=== PATIENT | female | born 2000 | race African-American/Black ===

== ENCOUNTER 2018-01-26 17:12 | Emergency (ER) | payer OTHER ==
[~2018-01-26] VITALS: Ht 162.6 cm; Wt 53.3 kg
[2018-01-26 17:57] LABS: HCG UR SG 1.026 (1.003-1.030); MICROSCOPIC NOT IND
[2018-01-26 18:06] LABS: CULTURE INDICATED? NO
[2018-01-26 18:06] LABS: ALANINE AMINOTRANSFERASE 10 U/L (12-78); ALBUMIN 4.4 g/dL (3.4-5.0); ANION GAP 8 mmol/L (5-15); CALCIUM 9.8 mg/dL (8.5-10.1); CHLORIDE 107 mmol/L (98-107); CREATININE 0.64 mg/dL (0.55-1.02)
[2018-01-26 18:07] LABS: ALKALINE PHOSPHATASE 71 U/L (45-117); BILIRUBIN,TOTAL 0.5 mg/dL (0.2-1.0); TOTAL PROTEIN 8.7 g/dL (6.4-8.2)
[2018-01-26 18:16] LABS: MEAN CORPUSCULAR HEMOGLOBIN 17.2 pg (27.0-34.8); MEAN CORPUSCULAR VOLUME 57.5 fL (80-100); MEAN PLATELET VOLUME 10.2 fL (7.4-10.4); PLATELET COUNT 452 x10^3/uL (130-400); RED BLOOD COUNT 4.17 x10^6/uL (3.82-5.3); RED CELL DISTRIBUTION WIDTH 23.3 % (9.6-15.2)
[2018-01-26 18:21] LABS: MD YES
[2018-01-26 18:26] LABS: BAND#(MANUAL) 0.06 x10^3/uL; BANDS%(MANUAL) 1 % (0-7); LYMPH#(MANUAL) 1.43 x10^3/uL (1-6.1); LYMPHS% (MANUAL) 23 % (22-44); MONOS#(MANUAL) 0.43 x10^3/uL (0.3-2.7); MONOS% (MANUAL) 7 % (2-9); SEG#(MANUAL) 4.28 x10^3/uL (1.8-8); SEGS% (MANUAL) 69 % (42-75)
[2018-01-26 18:27] LABS: MEAN CORPUSCULAR HGB CONC 29.9 g/dL (32.4-35.8)
[2018-01-26 18:28] LABS: <PLATELET ESTIMATE> INCREASED; ANISOCYTOSIS 2+; HYPOCHROMIA 2+; LARGE PLATELETS 1+; MICROCYTOSIS 2+; OVALOCYTES 1+
[2018-01-26 18:35] VITALS: BP 130/70
== END 2018-01-26 18:37 | disposition home or self-care (01) ==
LOC: ED 18:32
DX: K21.9 Gastro-esophageal reflux disease without esophagitis (principal); R10.13 Epigastric pain; G89.29 Other chronic pain; D64.9 Anemia, unspecified
CPT/HCPCS: 36415; 80053; 81003; 81025; 83690; 85025; 99284